=== PATIENT | female | born 1960 | race African-American/Black ===

== ENCOUNTER 2018-03-02 15:53 | Outpatient (CLI) | payer BC | END 2018-03-02 15:54 | disposition home or self-care (01) | LOC: BICMAMMO 15:53 | PROVIDERS: ATTEND Family Medicine | DX: Z12.31 Encounter for screening mammogram for malignant neoplasm of breast (principal); Z80.3 Family history of malignant neoplasm of breast | CPT/HCPCS: 77063; 77067 ==

== ENCOUNTER 2019-03-05 14:10 | Outpatient (CLI) | payer BC ==
--- NOTE | 2019-03-05 14:44 | MMO ---
Bilateral MAMMO Bilat Screen [facility]. CLINICAL HISTORY: Patient is 58 years old and is seen for screening. The patient has no family history of breast cancer. The patient has no personal history of cancer. VIEWS: The views performed were: bilateral craniocaudal with tomosynthesis and bilateral mediolateral oblique with tomosynthesis. FILMS COMPARED: The present examination has been compared to a prior imaging study performed at [facility] on 03/02/2018. MAMMOGRAM FINDINGS: There are scattered fibroglandular densities. There are stable benign appearing calcifications seen in both breasts. There are no suspicious masses, suspicious calcifications, or new areas of architectural distortion. IMPRESSION: THERE IS NO MAMMOGRAPHIC EVIDENCE OF MALIGNANCY. A ROUTINE FOLLOW-UP MAMMOGRAM IN 1 YEAR IS RECOMMENDED. THE RESULTS OF THIS EXAM WERE SENT TO THE PATIENT. ACR BI-RADS Category 2 - Benign finding MAMMOGRAPHY NOTE: 1. A negative mammogram report should not delay a biopsy if a dominant of clinically suspicious mass is present. 2. Approximately 10% to 15% of breast cancers are not detected by mammography. 3. Adenosis and dense breasts may obscure an underlying neoplasm.
== END 2019-03-05 14:11 | disposition home or self-care (01) ==
LOC: BICMAMMO 14:10
PROVIDERS: ATTEND Physician Assistant
DX: Z12.31 Encounter for screening mammogram for malignant neoplasm of breast (principal)
CPT/HCPCS: 77063; 77067

== ENCOUNTER 2019-05-29 15:31 | Outpatient (CLI) | payer BC ==
--- NOTE | 2019-05-29 15:57 | RAD ---
EXAM: Right knee: 4 views INDICATIONS: Knee pain COMPARISON: None. FINDINGS: Mild narrowing of medial joint space. Minimal spurring from tibial spines and posterior pat piyush. No fracture or acute abnormality. No joint effusion. IMPRESSION: Mild degenerative change
== END 2019-05-29 15:32 | disposition home or self-care (01) ==
LOC: BICRAD 15:31
PROVIDERS: ATTEND Physician Assistant
DX: M25.561 Pain in right knee (principal); M17.11 Unilateral primary osteoarthritis, right knee

== ENCOUNTER 2020-03-07 15:29 | Outpatient (CLI) | payer BC ==
--- NOTE | 2020-03-07 16:07 | MMO ---
Bilateral MAMMO Bilat Screen [facility]. CLINICAL HISTORY: Patient is 59 years old and is seen for screening. The patient has no family history of breast cancer. The patient has no personal history of cancer. VIEWS: The views performed were: bilateral craniocaudal with tomosynthesis and bilateral mediolateral oblique with tomosynthesis. FILMS COMPARED: The present examination has been compared to prior imaging studies performed at [facility] on 03/02/2018 and 03/05/2019. This study has been interpreted with the assistance of computer-aided detection. MAMMOGRAM FINDINGS: There are scattered fibroglandular densities. Benign calcifications are noted bilaterally. There are no suspicious masses, suspicious calcifications, or new areas of architectural distortion. IMPRESSION: THERE IS NO MAMMOGRAPHIC EVIDENCE OF MALIGNANCY. A ROUTINE FOLLOW-UP MAMMOGRAM IN 1 YEAR IS RECOMMENDED. THE RESULTS OF THIS EXAM WERE SENT TO THE PATIENT. ACR BI-RADS Category 2 - Benign finding MAMMOGRAPHY NOTE: 1. A negative mammogram report should not delay a biopsy if a dominant of clinically suspicious mass is present. 2. Approximately 10% to 15% of breast cancers are not detected by mammography. 3. Adenosis and dense breasts may obscure an underlying neoplasm. Reported by: KRISTEN BRYAN MD Electonically Signed: [id number]
== END 2020-03-07 15:30 | disposition home or self-care (01) ==
LOC: BICMAMMO 15:29
PROVIDERS: ATTEND Family Medicine
DX: Z12.31 Encounter for screening mammogram for malignant neoplasm of breast (principal)
CPT/HCPCS: 77063; 77067

== ENCOUNTER 2020-09-22 14:46 | Outpatient (CLI) | payer BC ==
--- NOTE | 2020-09-22 15:39 | RAD ---
2 views of the lumbar spine: 09/22/2020 COMPARISON: None HISTORY: Back pain with radiculopathy FINDINGS: There is 1 cm of anterolisthesis at L5-S1. This anterolisthesis is new when compared to the 09/26/2014 exam. There is facet hypertrophy at L4-5 and L5-S1. There is disc space narrowing with mild degenerative en dplate change and anterior osteophyte formation at the L4-5 and L5-S1 levels, progressed since the prior exam. No acute fracture. Clips in the right upper quadrant suggest prior cholecystectomy. IMPRESSION: Interval worsening of lower lumbar spine degenerative change with new anterolisthesis at the L5-S1 level. Recommend MRI if radicular symptoms are present.
== END 2020-09-22 14:47 | disposition home or self-care (01) ==
LOC: BICRAD 14:46
PROVIDERS: ATTEND Family Medicine
DX: M47.26 Other spondylosis with radiculopathy, lumbar region (principal); M43.17 Spondylolisthesis, lumbosacral region
CPT/HCPCS: 72100

== ENCOUNTER 2020-10-23 14:59 | Outpatient (CLI) | payer BC ==
--- NOTE | 2020-10-24 08:11 | MRI ---
MR the lumbar spine without contrast: 10/24/2020 History: Lumbar radicular pain, bilateral lower extremity shooting pains COMPARISON: None. TECHNIQUE: Multiplanar multisequence MR images were obtained of lumbar spine without IV contrast FINDINGS: On the basis of 5 lumbar type vertebral bodies, conus medullaris terminates at theL1 level. Sagittal STIR imaging demonstrates no focal area of osseous marrow edema. T12-L1:Intervertebral disc height and signal intensity within normal limits with no significant centr al canal or neural foraminal stenosis. L1-2:Mild bilateral facet hypertrophy. Minimal disc bulge. No central canal or neural foraminal steno sis. L2-3:Mild disc bulge with small left foraminal disc protrusion. Mild bilateral facet hypertrophy. Mil d left neural foraminal stenosis. No central canal or significant right neural foraminal stenosis. L3-4:Mild bilateral facet hypertrophy. Disc desiccation with mild disc bulge. No associated central c anal stenosis. Mild bilateral neural foraminal stenosis. L4-5:There is disc space narrowing with disc desiccation and mild disc bulge. Bilateral facet hypertr ophy and hypertrophy of the ligamentum flavum, right greater than left. Moderate/severe right neural foraminal stenosis. Mild left neural foraminal stenosis. No significant central canal stenosis . L5-S1:There is prominent bilateral facet hypertrophy with hypertrophy of the ligamentum flavum, right greater than left. There is fluid within the right facet joint. There is mild anterolisthesis at L5-S1 measuring 5 mm. There is severe bilateral neural foraminal stenosis. No significant central can al stenosis. Image retroperitoneal structures demonstratea nonspecific lateral right renal mid pole lesion measuri ng approximately 9 mm with T1 hyperintensity and T2 hyperintensity, not consistent with a cyst. IMPRESSION: Multilevel lumbar spine degenerative change, most prominently involving the facet joints of the lower lumbar spine with associated significant neural foraminal stenosis. 9 mm nonspecific lateral right renal lesion. This does not demonstrate signal characteristics consist ent with a cyst. This may represent a solid renal mass, differential diagnosis including angiomyolipoma. Recommend further assessment with CT. MOISE Lindsey
== END 2020-10-23 15:00 | disposition home or self-care (01) ==
LOC: BICMRI 14:59
PROVIDERS: ATTEND Family Medicine
DX: M47.26 Other spondylosis with radiculopathy, lumbar region (principal); N28.89 Other specified disorders of kidney and ureter; N28.1 Cyst of kidney, acquired
CPT/HCPCS: 72148

== ENCOUNTER 2020-11-08 13:17 | Emergency (ER) | payer BC ==
[2020-11-08] MEDS ORDERED: Ketorolac Tromethamine 30 MG/ML VIAL ONE (15:14)
== END 2020-11-08 16:00 | disposition home or self-care (01) ==
LOC: ERS 13:17
DX: M19.011 Primary osteoarthritis, right shoulder (principal); I10 Essential (primary) hypertension; E78.5 Hyperlipidemia, unspecified
CPT/HCPCS: 96372; J1885

== ENCOUNTER 2020-11-14 12:07 | Outpatient (CLI) | payer BC ==
[2020-11-14] MEDS ORDERED: Iopamidol-370 76% 500 ML 1 ML ONE (12:11)
== END 2020-11-14 12:08 | disposition home or self-care (01) ==
LOC: BICCT 12:07
PROVIDERS: ATTEND Family Medicine
DX: N28.89 Other specified disorders of kidney and ureter (principal); K57.30 Diverticulosis of large intestine without perforation or abscess without bleeding; R93.2 Abnormal findings on diagnostic imaging of liver and biliary tract
CPT/HCPCS: 74178; 82565; Q9967

== ENCOUNTER 2021-06-01 14:26 | Outpatient (CLI) | payer BC | END 2021-06-01 14:27 | disposition home or self-care (01) | LOC: ULT 14:26 | PROVIDERS: ATTEND Nurse Practitioner Family | DX: E53.9 Vitamin B deficiency, unspecified (principal); M79.671 Pain in right foot; M79.672 Pain in left foot | CPT/HCPCS: 93970 ==

== ENCOUNTER 2021-06-25 15:16 | Outpatient (CLI) | payer BC | END 2021-06-25 15:17 | disposition home or self-care (01) | LOC: BICMAMMO 15:16 | PROVIDERS: ATTEND Nurse Practitioner Family | DX: M85.88 Other specified disorders of bone density and structure, other site (principal); G62.9 Polyneuropathy, unspecified; E53.9 Vitamin B deficiency, unspecified; E78.00 Pure hypercholesterolemia, unspecified; I10 Essential (primary) hypertension; E66.9 Obesity, unspecified | CPT/HCPCS: 77080 ==

== ENCOUNTER 2022-02-25 17:25 | Emergency (ER) | payer BC | END 2022-02-25 20:04 | disposition home or self-care (01) | LOC: ERS 17:25 | DX: U07.1 COVID-19 (principal) | CPT/HCPCS: 99283; U0003; U0005 ==

== ENCOUNTER 2022-03-01 10:51 | Emergency (ER) | payer BC | END 2022-03-01 12:51 | disposition home or self-care (01) | LOC: ERS 10:51 | DX: U07.1 COVID-19 (principal); I10 Essential (primary) hypertension; E78.5 Hyperlipidemia, unspecified | CPT/HCPCS: 71045 ==

== ENCOUNTER 2022-03-17 15:47 | Outpatient (CLI) | payer BC | END 2022-03-17 15:48 | disposition home or self-care (01) | LOC: BICMAMMO 15:47 | PROVIDERS: ATTEND Family Medicine | DX: Z12.31 Encounter for screening mammogram for malignant neoplasm of breast (principal) | CPT/HCPCS: 77063; 77067 ==

== ENCOUNTER 2023-04-13 14:18 | Outpatient (CLI) | payer BC | END 2023-04-13 14:19 | disposition home or self-care (01) | LOC: BICMAMMO 14:18 | PROVIDERS: ATTEND Family Medicine | DX: Z12.31 Encounter for screening mammogram for malignant neoplasm of breast (principal); N64.89 Other specified disorders of breast; Z80.3 Family history of malignant neoplasm of breast | CPT/HCPCS: 77063; 77067 ==

== ENCOUNTER 2023-04-15 14:40 | Outpatient (CLI) | payer BC | END 2023-04-15 14:41 | disposition home or self-care (01) | LOC: BICMAMMO 14:40 | PROVIDERS: ATTEND Family Medicine | DX: N64.89 Other specified disorders of breast (principal); N63.12 Unspecified lump in the right breast, upper inner quadrant | CPT/HCPCS: G0279 ==

== ENCOUNTER → 2023-04-22 | Day surgery (SDC) | payer BC | LOC: BICULT 12:31 | PROVIDERS: ATTEND Family Medicine | DX: C50.211 Malignant neoplasm of upper-inner quadrant of right female breast (principal); Z17.0 Estrogen receptor positive status [ER+] | CPT/HCPCS: 19083; 88305; 88341; 88342 ==

== ENCOUNTER 2023-06-13 15:22 | Outpatient (CLI) | payer BC | END 2023-06-13 15:23 | disposition home or self-care (01) | LOC: BICRAD 15:22 | PROVIDERS: ATTEND Family Medicine | DX: N63.12 Unspecified lump in the right breast, upper inner quadrant (principal); M47.816 Spondylosis without myelopathy or radiculopathy, lumbar region; M43.17 Spondylolisthesis, lumbosacral region; M16.0 Bilateral primary osteoarthritis of hip | CPT/HCPCS: 72110 ==

== ENCOUNTER 2023-06-14 15:38 | Outpatient (CLI) | payer BC ==
[2023-06-14 17:19] LABS: #Eosinphils 0.1 10x3/uL (0.0-0.5); #Monocytes 0.5 10x3/uL (0.0-1.1); #Neutrophils 3.8 10x3/uL (1.5-8.4); %Basophils 0.4 % (0.0-2.0); %Eosinophils 1.4 % (0.0-6.0); %Lymphocytes 37.7 % (18.0-47.0); %Monocytes 7.3 % (0.0-10.0); %Neutrophils 52.9 % (40.0-75.0); Hematocrit 39.5 % (34.9-44.5); Mean Corpuscular HGB CONC 30.4 g/dL (32.0-36.0); Mean Corpuscular Hemoglobin 26.3 pg (27.0-33.0); Mean Corpuscular Volume 86.6 fl (81.6-98.3); Mean Platelet Volume 10.2 fl (7.4-10.4); Platelet Count 270 10x3/uL (150-450); RBC Distribution Width 13.2 % (11.5-14.5); Red Blood Cell (RBC) Count 4.56 10x6/uL (3.90-5.03); White Blood Cell (WBC) Count 7.3 10x3/uL (3.5-10.5)
[2023-06-14 17:38] LABS: Anion Gap 17 mmol/L (10-20); BUN (Urea Nitrogen) 20 mg/dL (9.8-20.1); Calc. Creatinine Clearance 0 mL/min (70-130); Calcium 9.2 mg/dL (7.8-10.44); Carbon Dioxide 21 mmol/L (23-31); Chloride 104 mmol/L (98-107); Estimated GFR 71; Glucose 118 mg/dL (80-115); Potassium 4.4 mmol/L (3.5-5.1); Sodium 138 mmol/L (136-145)
== END 2023-06-14 15:39 | disposition home or self-care (01) ==
LOC: LABBT 15:38
PROVIDERS: ATTEND Specialist
DX: Z01.818 Encounter for other preprocedural examination (principal); C50.919 Malignant neoplasm of unspecified site of unspecified female breast
CPT/HCPCS: 71046; 80048; 85025; 93005; 93010

== ENCOUNTER 2023-06-21 07:25 | Day surgery (SDC) | payer BC ==
[2023-06-14 16:01] VITALS: BMI 33.3
[2023-06-21] MEDS ORDERED: Ketorolac Tromethamine 30 MG/ML VIAL ONE (09:08)
[2023-06-21] MEDS ORDERED: Bupivacaine 0.25% HCL 30 ML VIAL ONE (10:24)
[2023-06-21] MEDS ORDERED: Lidocaine 2% PF 5 ML VIAL ONE (10:24)
[2023-06-21] MEDS ORDERED: EPINEPHrine 1 MG/ML AMP ONE (10:24)
[2023-06-21] MEDS ORDERED: Isosulfan Blue 50 MG/5 ML VIAL ONE (10:24)
[2023-06-21] MEDS ORDERED: fentaNYL PF 100 MCG/2 ML SYRINGE ONE ×2 (10:36)
[2023-06-21] MEDS ORDERED: Sodium Chloride 0.9% 100 ML ONE (10:37)
[2023-06-21] MEDS ORDERED: CEFAZOLIN 2 GM VIAL ONE (10:37)
[2023-06-21] MEDS ORDERED: Dexamethasone 20 MG/5 ML VIAL ONE (10:51)
[2023-06-21] MEDS ORDERED: Ondansetron PF 4 MG/2 ML Vial ONE (10:51)
[2023-06-21] MEDS ORDERED: Lidocaine 1% PF 5 ML VIAL ONE (10:51)
[2023-06-21] MEDS ORDERED: PROPOFOL 200 MG/20 ML VIAL ONE (10:51)
== END 2023-06-21 14:28 | disposition home or self-care (01) ==
LOC: NM 07:25
PROVIDERS: ATTEND Specialist
PROC: 0HBT0ZZ Excision of Right Breast, Open Approach (ICD-10-PCS; principal; 2023-06-21)
PROC: 07B50ZZ Excision of Right Axillary Lymphatic, Open Approach (ICD-10-PCS; principal; 2023-06-21)
DX: C50.211 Malignant neoplasm of upper-inner quadrant of right female breast (principal); Z17.0 Estrogen receptor positive status [ER+]
CPT/HCPCS: 76098; 78195; 88307; 88341; 88342; A9541; J0171; J1100; J1885; J2001; J2405; J2704; J3490; Q9968; S0020

== ENCOUNTER 2023-07-14 10:05 | Day surgery (SDC) | payer BC ==
[2023-07-13 09:47] VITALS: BMI 33.3
[2023-07-14] MEDS ORDERED: Acetaminophen 500 MG TAB ONE (11:10)
[2023-07-14] MEDS ORDERED: Ketorolac Tromethamine 30 MG/ML VIAL ONE (11:10)
[2023-07-14] MEDS ORDERED: Sodium Chloride 0.9% 100 ML ONE (11:11)
[2023-07-14] MEDS ORDERED: CEFAZOLIN 2 GM VIAL ONE (11:11)
[2023-07-14] MEDS ORDERED: Lidocaine 1% PF 5 ML VIAL ONE ×2 (11:52→13:20)
[2023-07-14] MEDS ORDERED: PROPOFOL 20 ML ONE (11:52)
[2023-07-14] MEDS ORDERED: Bupivacaine 0.25% HCL 30 ML VIAL ONE (12:40)
[2023-07-14] MEDS ORDERED: EPINEPHrine 1 MG/ML VIAL ONE (12:40)
[2023-07-14] MEDS ORDERED: fentaNYL 50 mcg/mL 1 mL Vial ONE (13:03)
[2023-07-14] MEDS ORDERED: Ondansetron PF 4 MG/2 ML Vial ONE ×2 (13:20→13:29)
[2023-07-14] MEDS ORDERED: PROPOFOL 200 MG/20 ML VIAL ONE (13:20)
[2023-07-14] MEDS ORDERED: fentaNYL PF 100 MCG/2 ML SYRINGE ONE (14:22)
== END 2023-07-14 15:41 | disposition home or self-care (01) ==
LOC: SDC 10:05
PROVIDERS: ATTEND Specialist
PROC: 0HBT0ZZ Excision of Right Breast, Open Approach (ICD-10-PCS; principal; 2023-07-14)
DX: D05.11 Intraductal carcinoma in situ of right breast (principal); I10 Essential (primary) hypertension; E78.5 Hyperlipidemia, unspecified; Z79.82 Long term (current) use of aspirin
CPT/HCPCS: 88307; J0171; J1885; J2405; J2704; J3010; J3490; S0020

== ENCOUNTER 2023-09-23 15:05 | Outpatient (CLI) | payer BC | END 2023-09-23 15:06 | disposition home or self-care (01) | LOC: BICMAMMO 15:05 | PROVIDERS: ATTEND Internal Medicine | DX: M85.88 Other specified disorders of bone density and structure, other site (principal) | CPT/HCPCS: 77080 ==

== ENCOUNTER 2024-07-12 13:24 | Outpatient (CLI) | payer BC | END 2024-07-12 13:25 | disposition home or self-care (01) | LOC: BICMAMMO 13:24 | PROVIDERS: ATTEND Specialist | DX: Z08 Encounter for follow-up examination after completed treatment for malignant neoplasm (principal); Z86.000 Personal history of in-situ neoplasm of breast | CPT/HCPCS: 77066; G0279 ==

== ENCOUNTER 2024-09-25 15:06 | Outpatient (CLI) | payer BC | END 2024-09-25 15:07 | disposition home or self-care (01) | LOC: BICMAMMO 15:06 | PROVIDERS: ATTEND Internal Medicine | DX: C50.211 Malignant neoplasm of upper-inner quadrant of right female breast (principal); M85.88 Other specified disorders of bone density and structure, other site | CPT/HCPCS: 77080 ==

== ENCOUNTER 2025-02-27 10:43 | Outpatient (CLI) | payer BC ==
[2025-02-27 13:55] LABS: Estimated GFR - POC 50.0
== END 2025-02-27 10:44 | disposition home or self-care (01) ==
LOC: MRI 10:43
PROVIDERS: ATTEND Family Medicine
DX: M87.9 Osteonecrosis, unspecified (principal); M18.11 Unilateral primary osteoarthritis of first carpometacarpal joint, right hand; S96.811A Strain of other specified muscles and tendons at ankle and foot level, right foot, initial encounter
CPT/HCPCS: 82565